=== PATIENT | female | born 1980 | race Caucasian/White ===

== ENCOUNTER 2020-02-25 17:45 | Emergency (ER) | payer OTHER ==
[~2020-02-25] VITALS: Ht 157.5 cm; Wt 82.5 kg
== END 2020-02-25 19:57 | disposition home or self-care (01) ==
LOC: ER 17:45
DX: L76.22 Postprocedural hemorrhage of skin and subcutaneous tissue following other procedure (principal); Z23 Encounter for immunization
CPT/HCPCS: 90471; 90714; 99282-25

== ENCOUNTER → 2020-02-25 | Outpatient (CLI) | payer OTHER ==
[~2020-02-25] MED LIST: BENZ100A PO
== END | disposition home or self-care (01) ==
LOC: PLD 08:48 → LAB SHORT 08:48
DX: L30.8 Other specified dermatitis (principal)
CPT/HCPCS: 88305; 88312